=== PATIENT | female | born 1970 | race Caucasian/White ===

== ENCOUNTER → 2021-03-31 11:54 | Outpatient (CLI) | payer MEDICAID, SELFPAY | PROVIDERS: Visit Provider Nurse Practitioner | DX: Z20.822 Contact with and (suspected) exposure to COVID-19 (principal) | CPT/HCPCS: C9803; U0003; U0005 ==

== ENCOUNTER 2021-05-23 17:14 | Emergency (ER) | payer MEDICAID, SELFPAY ==
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
[2021-05-23 18:17] VITALS: BP 152/94; PULSE 74; RESP 19; TEMP 36.9; O2SAT 99; BMI 45.4
--- NOTE | 2021-05-23 18:38 | HMH.EDUTC ---
[facility] [place] Clinical Impression: Lower extremity pain Qualifiers: Laterality: right Qualified Code(s): M79.604 - Pain in right leg Disposition: Home, Self-Care Condition on Discharge: Good Instructions: Contusion, DI for Contusion, How To Perform RICE (Rest, Ice, Compress, Elevate) Additional Instructions: *weight bearing as tolerated *RICE, Rest the extremity, Ice 15-20 minutes 3-4 times daily, Compress- wear the ashok wrap as discussed as much as possible to help reduce swelling and pain, Elevate the extremity when at rest *Ashok wrap is for support and help control swelling, use it except in the shower. Be sure that is not to tight but not to loose either *Elevate when resting *Ibuprofen as directed on package every 6-8 hours as needed for pain an inflammation. If need something more can take Tylenol in between doses of Ibuprofen to help Immediately follow up with your family doctor for new or worsening of symptoms, or no noticeable improvement over the next 3-5 days Referrals: Silvia Beckwith APRN [Primary Care Provider] - As needed Time of Disposition: 18:46 Medical Decision Making - Socrates Inquiry Pt receiving controlled substance: No Socrates was queried for this patient: No Vital Signs: 05/23/21 18:17 Temperature 98.4 F Temperature Source Oral Pulse Rate [Left] 74 Respiratory Rate 19 Blood Pressure [Right Arm] 152/94 H Blood Pressure Mean [Right Arm] 113 02 Sat by Pulse Oximetry 99 Orders (Tests/Meds): ORDERS Category Date Time Status Knee XR right 3 views [XR knee RT 3V] Stat Exams 05/23/21 17:49 Taken XR tibia fibula RT 2V Stat Exams 05/23/21 17:49 Taken - Radiology Data #1 Image(s): Knee Image Reviewed: Yes I have reviewed radiologist's interpretation IMPRESSION: 1. No evidence of acute osseous injury. 2. Chronic posttraumatic deformity proximal fibula and postoperative changes incompletely visualized involving the tibia. #2 Image(s): Tib/Fib Image Reviewed: Yes I have reviewed radiologist's interpretation IMPRESSION: 1. No evidence of acute osseous injury. 2. Status post previous ORIF involving the tibia as described above. 3. Chronic posttraumatic deformity involving the fibula. [facility] [place] - General Stated complaint: fall rt leg pain 05/22/21 Time Seen by Provider: 05/23/21 18:38 Mode of Arrival: Ambulatory Source of Information: Patient Limitations: No Limitations Description of Symptoms (Recalled from Triage Doc. by RN): pt states she fell on the ice last night. pt is c/o L knee and lower leg pain. pt states she has a whitney in this part of her leg and wants to make sure it is okay. HEENT Symptoms (Recalled from RN notes): No Resp Symptoms (Recalled from RN notes): No Skin Symptoms (Recalled from RN notes): No MS Symptoms (Recalled from RN notes): Yes Functional Status (Recalled from RN notes): wnl - History of Present Illness Provider Complaint: Patient states that she slipped and fell last night on ice and landed on her left knee State that since falling she has been having pain and little swelling in her right knee and lower leg State that has whitney in that leg and wanted to get an xray to make sure it was ok - Related Data Home Medications Medication Instructions Recorded Confirmed atorvastatin 40 mg tablet PO 05/23/19 05/23/19 glimepiride 4 mg tablet mg PO 05/23/19 05/23/19 levothyroxine 50 mcg tablet PO 05/23/19 05/23/19 lisinopril 20 mg tablet PO 05/23/19 05/23/19 metformin 1,000 mg tablet mg PO 05/23/19 05/23/19 nateglinide 120 mg tablet mg PO 05/23/19 05/23/19 pioglitazone 45 mg tablet mg PO 05/23/19 05/23/19 ropinirole 1 mg tablet mg PO 05/23/19 05/23/19 Previous Rx's Medication Instructions Recorded ketoconazole 2 % topical cream 1 applic TOPICAL BID 30 Days #30 g 05/23/19 nystatin 100,000 unit/gram topical 1 applic TOPICAL BID #30 g 05/23/19 powder Allergies Allergy/AdvReac Type Severity Reaction Status Date / Time No Maryellen
[2021-05-23 18:58] VITALS: BP 152/94; PULSE 74; RESP 19; TEMP 36.9
== END 2021-05-23 19:00 | disposition home or self-care (01) ==
LOC: ER 17:18 → UTC 17:20
PROVIDERS: Emergency Provider Nurse Practitioner; PCP Nurse Practitioner
DX: M79.604 Pain in right leg (principal); W00.0XXA Fall on same level due to ice and snow, initial encounter; I10 Essential (primary) hypertension; E11.9 Type 2 diabetes mellitus without complications
CPT/HCPCS: 73562; 73590; 99212; G0463

== ENCOUNTER → 2022-08-01 12:42 | Outpatient (CLI) | payer MEDICAID, SELFPAY ==
--- NOTE | 2022-08-01 | CA_ITS ---
APPROVED REPORT Exam: Pharmacologic Technologist: Juliana Bond, Ht: 5 ft 7 in Wt: 306 lbs BSA: 2.42 m2 HR: 71 bpm BP: 147/97 mmHg Rhythm: NSR Medical History Medical History: Hyperlipidemia, Diabetes Medications: Levothyroxine,,,,, Trazadone,,,,, Atorvastatin,,,,, Glimepiride,,,,, Pioglitazone,,,,, Tramadol,,,,, Vit D3,,,,, DulOXETINE,,,,, Escitalopram Oxalate,,,,, Ropinerole,,,,, Diclofenac Sodium,,,,, BuPROPION HCL,,,,, Allergies: No known drug allergies Cardiac Risk Factors: Hyperlipidemia, Diabetes Stress Test Details Test: LEXISCAN HR Resting HR: 69 bpm Max Heart Rate (APMHR): 169 bpm Max HR Achieved: 95 bpm Target HR (85% APMHR): 144 bpm % of APMHR: 56 Recovery HR: 78 bpm BP Resting BP: 147/97 mmHg Max BP: 167/102 mmHg Recovery BP: 158.0/110.0 mmHg ECG Resting ECG: NSR, LOW VOLTAGE IN PRECORDIAL LEADS Clinical Exercise duration: 04:01 min Highest Stage Achieved: Exercise capacity: n/a METs Stress ECG Conclusion PT DEVELOPED LIGHTHEADEDNESS FOLLOWING ADMINISTRATION OF [place] NO ISCHEMIC CHANGES WITH STRESS Test Summary REST 04:57 . . 69 . 147/ 97 . . Stage 1 . . . . . . . Myoview Injected Stage 1 01:00 . . 80 . . . . Stage 2 01:00 . . 87 . . . . Stage 3 01:00 . . 82 . . . . Stage 4 01:00 . . 82 . 152/101 . . Stage 4 01:01 . . 82 . 152/101 . Stop exercise at 04:01 RECOVERY 01:00 . . 75 . . . . RECOVERY 02:00 . . 78 . 161/ 92 . . RECOVERY 03:00 . . 79 . 167/102 . . RECOVERY 04:00 . . 79 . 167/102 . . RECOVERY 05:00 . . 78 . 167/102 . . RECOVERY 06:00 . . 78 . 158/110 . . RECOVERY 06:01 . . 79 . 158/110 . . Electronically signed by : Johanna Arriaga, 08/01/2022 18:22:35
--- NOTE | 2022-08-01 12:42 | NM_ITS ---
APPROVED REPORT Exam: Nuclear Stress Test Indication: chest pain Patient Location: Outpatient Stress Tech: Juliana Bond [place] Tech:Breanne Posada [place] RT (R)(N)(M) Ht: 5 ft 8 in Wt: 300 lbs Bra Size: 44d HR: 71 bpm BP: 147/97 mmHg BSA: 2.43 m2 TID: 1.13 BMI: 45.6 History: chest pain Procedure: Patient received 0.4 mg of intravenous Lexiscan, resting heart rate 71 bpm, resting blood pressure 147/97 mmHg, with Lexiscan maximum heart rate achieved was 85 bpm which is 85 % of the maximum predicted heart rate and blood pressure was 152/101 mmHg. With Lexiscan, patient denied any complaint of chest pain. Cardiac Stress and Resting SPECT Images: Cardiac Stress and Resting SPECT images were obtained using technetium 99m Myoview 31.3 mCi stress and 9.97 mCi at rest. Resting and stress supine imaging demonstrate a medium-sized, mild fixed perfusion defect that is no longer visualized with prone imaging, suggestive of soft tissue attenuation. In prone stress imaging, there is a new septal perfusion defect present that was otherwise not visualized in either resting images or supine stress imaging. This is likely due to sternal and rib attenuation of the septal wall that may be seen with prone imaging. The combined resting and supine/prone stress imaging are suggestive of absence of true fixed or reversible perfusion defects. Gated imaging demonstrates normal left ventricular global and regional systolic function. LVEF is calculated at 53%. Conclusion: No definite reversible or fixed perfusion defects. Gated imaging demonstrates normal left ventricular global and regional systolic function. LVEF is calculated at 53% Electronically signed by : Johanna Arriaga, 08/01/2022 18:37:28
== END ==
PROVIDERS: PCP Physician Assistant; Visit Provider Nurse Practitioner
DX: Z01.810 Encounter for preprocedural cardiovascular examination (principal); R07.89 Other chest pain; E11.42 Type 2 diabetes mellitus with diabetic polyneuropathy; E66.9 Obesity, unspecified; Z68.42 Body mass index [BMI] 45.0-49.9, adult; Z79.84 Long term (current) use of oral hypoglycemic drugs
CPT/HCPCS: 78452; 93017; A9502; J2785

== ENCOUNTER → 2022-08-05 08:36 | Outpatient (CLI) | payer MEDICAID, SELFPAY | PROVIDERS: PCP Physician Assistant; Visit Provider Nurse Practitioner | DX: R07.89 Other chest pain (principal); Z01.810 Encounter for preprocedural cardiovascular examination; E11.42 Type 2 diabetes mellitus with diabetic polyneuropathy; E66.9 Obesity, unspecified; Z79.84 Long term (current) use of oral hypoglycemic drugs; Z68.42 Body mass index [BMI] 45.0-49.9, adult | CPT/HCPCS: 93306 ==